=== PATIENT | male | born 1975 ===

== ENCOUNTER 2017-11-24 14:49 | Emergency (ER) | payer OTHER ==
[2017-11-24 15:06] VITALS: RESP 18
[2017-11-24 16:23] VITALS: BP 140/93; PULSE 73; TEMP 98.5; O2SAT 99
--- NOTE | 2017-11-24 17:24 | C.PDOC ---
History Of Present Illness 42 y/o male presents to ED with complaints of nose bleeding that developed 30 minutes [employer]. Upon presentation to ED bleeding subsided secondary to compression and denies history of nose bleeds or blood disorder. No other complaints at this time. Chief Complaint (Nursing): ENT Problem History Per: Patient History/Exam Limitations: None Onset/Duration Of Symptoms: Hrs Current Symptoms Are (Timing): Still Present Past Medical History Reviewed: Historical Data, Nursing Documentation, Vital Signs Vital Signs: Last Vital Signs Temp 98.5 F 11/24/17 16:22 Pulse 73 11/24/17 16:22 Resp 18 11/24/17 16:22 BP 140/93 H 11/24/17 16:22 Pulse Ox 99 11/24/17 17:34 - Medical History PMH: No Chronic Diseases Surgical History: No Surg Hx Family History: States: No Known Family Hx - Social History Hx Alcohol Use: No Hx Substance Use: No - Immunization History Hx Tetanus Toxoid Vaccination: Yes Hx Influenza Vaccination: Yes Hx Pneumococcal Vaccination: No Review Of Systems Constitutional: Negative for: Fever, Chills ENT: Positive for: Nose Pain, Nose Discharge. Negative for: Ear Pain Cardiovascular: Negative for: Chest Pain Respiratory: Negative for: Cough Skin: Negative for: Rash Physical Exam - Physical Exam Appears: Non-toxic, No Acute Distress Skin: Warm, Dry, No Rash Head: Atraumatic, Normacephalic Eye(s): bilateral: Normal Inspection Nose: No Discharge, Tenderness, Other (.5cm to left nare. No active bleeding. Right nare intact) Oral Mucosa: Moist Throat: Normal, No Erythema, No Exudate Neck: Normal ROM, Supple Cardiovascular: Rhythm Regular Respiratory: Normal Breath Sounds, No Rales, No Rhonchi, No Wheezing Gastrointestinal/Abdominal: Soft, No Tenderness, No Guarding, No Rebound Extremity: Normal ROM, Capillary Refill (<2 seconds) ED Course And Treatment O2 Sat by Pulse Oximetry: 99 (RA) Pulse Ox Interpretation: Normal Progress Note: Patient was observed without nose packing, no bleeding noted. Patient discharged with follow up to PMD Disposition - Disposition Referrals: Christina Brooks, [Non-Staff] - Disposition: HOME/ ROUTINE Disposition Time: 16:00 Condition: IMPROVED Additional Instructions: Thank you for letting us take care of you today. The emergency medical care you received today was directed at your acute symptoms. If you were prescribed any medication, please fill it and take as directed. It may take several days for your symptoms to resolve. Return to the Emergency Department if your symptoms worsen, do not improve, or if you have any other problems. Please contact your doctor or call one of the physicians/clinics you have been referred to that are listed on the Patient Visit Information form that is included in your discharge packet. Bring any paperwork you were given at discharge with you along with any medications you are taking to your follow up visit. Our treatment cannot replace ongoing medical care by a primary care provider (PCP) outside of the emergency department. Thank you for allowing the [facility] team to be part of your care today. Follow up with your primary doctor if symptoms persist. Instructions: Nosebleeds Forms: [facility] [employer] [facility] (Lithuanian) - Clinical Impression Clinical Impression: Bleeding nose - Scribe Statement The provider has reviewed the documentation as recorded by the Noriibashlie Abreu All medical record entries made by the Noriibashlie were at my direction and personally dictated by me. I have reviewed the chart and agree that the record accurately reflects my personal performance of the history, physical exam, medical decision making, and the department course for this patient. I have also personally directed, reviewed, and agree with the discharge instructions and disposition.
== END 2017-11-24 16:23 | disposition home or self-care (01) ==
LOC: C.ER 14:49
DX: R04.0 Epistaxis (principal)

== ENCOUNTER 2018-11-11 09:16 | Outpatient (CLI) | payer OTHER | END 2018-11-11 09:17 | disposition home or self-care (01) | LOC: C.LAB 09:16 ==